=== PATIENT | male | born 1995 | race African-American/Black ===

== ENCOUNTER 2021-07-02 10:24 | Emergency (ER) | payer OTHER ==
[~2021-07-02] VITALS: Ht 193 cm; Wt 81.7 kg
[~2021-07-02 10:24] MED LIST: FLEXERIL PO
[2021-07-02 11:21] LABS: ABSOLUTE NEUTROPHILS 3.6 thou/uL (1.4-8.2); BASOPHILS 0.5 % (0.0-2.0); EOSINOPHILS 1.1 % (0.0-3.0); HEMATOCRIT 45.4 % (42.0-52.0); HEMOGLOBIN 14.8 gm/dL (14.0-18.0); LYMPHOCYTES 22.5 % (24.0-44.0); MCH 28.1 pg (26.0-34.0); MCHC 32.5 g/dL (28.0-37.0); MCV 86.3 fL (80.0-100.0); MONOCYTES 6.9 % (1.0-8.0); PLATELET COUNT 286 thou/uL (150-400); RBC 5.26 mil/uL (4.50-6.00); RDW 13.5 % (10.5-14.5); WBC 5.2 thou/uL (4.0-11.0)
[2021-07-02 11:34] LABS: CALCIUM 9.3 mg/dL (8.5-10.1); CREATININE 1.2 mg/dL (0.7-1.3)
[2021-07-02 11:44] LABS: ALBUMIN 4.4 g/dL (3.4-5.0); TOTAL BILIRUBIN 1.3 mg/dL (0.2-1.0); TOTAL PROTEIN 8.1 g/dL (6.4-8.2)
[2021-07-02 12:17] VITALS: BP 109/93
--- NOTE | 2021-07-03 08:06 | EKG ---
[place] [address] [facility] [place] [address] ELECTROCARDIOGRAM REPORT Name: FRANCOISE CORDOVA Room #: [facility] [id number] Admission: 07/02/21 Attend Phys: Discharge: 07/02/21 Date of : [birth year] Report #: [id number] [facility] ED Test Date: 2021-07-02 Test Time: 11:24:29 Pat Name: FRANCOISE CORDOVA Department: Room: Gender: M [employer] Farmer: : 1995 Requested By: Daphnie Desai Order Number: [id number] MD: Cesario Magallanes Measurements Intervals [place] Rate: 69 P: 84 MN: 50 QRS: 67 QRSD: 91 T: 72 QT: 364 QTc: 390 Interpretive Statements Sinus rhythm ST elev, probable normal early repol pattern No previous ECG available for comparison Electronically Signed On 07-03-2021 8:06:40 [employer] by Cesario Magallanes [email or web address] <ELECTRONICALLY SIGNED> By: Cesario Magallanes MD, [facility] 07/03/21 [id number] Cesario Magallanes MD, FACC /EPI
== END 2021-07-02 12:18 | disposition home or self-care (01) ==
LOC: ER 10:24
PROVIDERS: Emergency Medicine
DX: U07.1 COVID-19 (principal); J06.9 Acute upper respiratory infection, unspecified